=== PATIENT | male | born 1970 | race American Indian/Alaskan Native ===

== ENCOUNTER 2019-07-07 22:56 | Emergency (ER) | payer MEDICAID, OTHER ==
--- NOTE | 2019-07-07 23:40 | EDM.PDOC ---
ED HPI GENERAL MEDICAL PROBLEM - General Chief Complaint: Respiratory Problem Stated Complaint: HARD TIME BREATHING Time Seen by Provider: 07/07/19 23:25 Source of Information: Reports: Patient History Limitations: Reports: No Limitations - History of Present Illness INITIAL COMMENTS - FREE TEXT/NARRATIVE: This 48 yo male patient reports to the ED with increased shortness of breath and chest discomfort over the past 7-10 days. The patient states his symptoms have gotten worse over the past 2 days. The patient has not been seen in the clinic for his current symptoms. The patient reports his shortness of breath gets worse at night. The patient also reports he has noticed swelling in his legs over the past 2 days. The patient reports he is currently not on any medications. The patient reports he is an alcoholic, but has not drank in "years ". Onset Date: 06/30/19 Duration: Constant, Getting Worse Location: Reports: Chest Quality: Reports: Other Severity: Moderate Improves with: Reports: None Worsens with: Reports: None Context: Reports: Other Associated Symptoms: Reports: Chest Pain, cough w sputum, Shortness of Breath - Related Data Allergies Allergy/AdvReac Type Severity Reaction Status Date / Time No Known Allergies Allergy Verified 07/07/19 23:38 Home Meds: Home Meds . [No Known Home Meds] 07/07/19 [History] ED ROS GENERAL - Review of Systems Review Of Systems: Comprehensive ROS is negative, except as noted in HPI. ED EXAM, GENERAL - Physical Exam Exam: See Below Exam Limited By: No Limitations General Appearance: Alert, WD/WN, Moderate Distress Eye Exam: Bilateral Eye: EOMI, Normal Inspection, PERRL Ears: Normal External Exam, Normal Canal, Hearing Grossly Normal, Normal TMs Nose: Normal Inspection, Normal Mucosa, No Blood Throat/Mouth: Normal Inspection, Normal Lips, Normal Teeth, Normal Gums, Normal Oropharynx, Normal Voice, No Airway Compromise Head: Atraumatic, Normocephalic Neck: Normal Inspection, Supple, Non-Tender, Full Range of Motion Respiratory/Chest: No Accessory Muscle Use, Chest Non-Tender, Rhonchi ( bilateral lower lobes) Cardiovascular: Normal Peripheral Pulses, Regular Rate, Rhythm, No Gallop, No JVD, No Murmur, No Rub GI/Abdominal: Normal Bowel Sounds, Soft, Non-Tender, No Organomegaly, No Distention, No Abnormal Bruit, No Mass (Male) Exam: Deferred Rectal (Males) Exam: Deferred Extremities: Normal Range of Motion, Non-Tender, Normal Capillary Refill, Pedal Edema (2+) Neurological: Alert, Oriented, CN II-XII Intact, Normal Cognition, Normal Gait, Normal Reflexes Psychiatric: Normal Affect, Normal Mood Skin Exam: Warm, Dry, Intact, Normal Color, No Rash Lymphatic: No Adenopathy Course - Vital Signs Last Recorded V/S: Last Vital Signs Temp 35.7 C 07/07/19 23:00 Pulse 109 H 07/07/19 23:00 Resp 20 07/07/19 23:00 BP 116/88 07/07/19 23:00 Pulse Ox 100 07/07/19 23:00 - Orders/Labs/Meds Orders: Active Orders 24 hr Category Date Time Status EKG Documentation Completion [RC] URGENT Care 07/07/19 23:06 Ordered Chest w Cont [CT] Urgent Exams 07/08/19 00:25 Ordered Sodium Chloride 0.9% [Normal Saline] 1,000 ml Med 07/08/19 01:11 Active IV .BOLUS Medication Orders Sodium Chloride (Normal Saline) 1,000 mls @ 999 mls/hr IV .BOLUS ONE Stop: 07/08/19 02:11 Last Admin: 07/08/19 01:14 Dose: 999 mls/hr Labs: Laboratory Tests 07/07/19 07/07/19 07/07/19 Range/Units 23:20 23:20 23:20 WBC 9.5 (5.0-10.0) 10^3/uL RBC 4.52 L (4.6-6.2) 10^6/uL Hgb 13.5 L (14.0-18.0) g/dL Hct 41.3 (40.0-54.0) % MCV 91.4 (80-100) fL MCH 29.9 (27.0-34.0) pg MCHC 32.7 L (33.0-35.0) g/dL Plt Count 389 (150-450) 10^3/uL Neut % (Auto) 67.4 (42.2-75.2) % Lymph % (Auto) 21.6 (20.5-50.1) % [place] % (Auto) 8.3 H (2-8) % Eos % (Auto) 2.4 (1.0-3.0) % Baso % (Auto) 0.3 (0.0-1.0) % D-Dimer, Quantitative 2350 H (0-400) ng/mL Sodium 134 L (135-145) mmol/L Potassium 3.4 L (3.6-5.0) mmol/L Chloride 101 (101-111) mmol/L Carbon Dioxide 24.0 (21.0-31.0) mmol/L Anion Gap 12.4 BUN 22 H (7-18) mg/dL Creatinine 1.2 (0.6-1.3) mg/dL Est Cr Clr Drug Dosing 75.28 mL/min Estimated GFR (MDRD) > 60 BUN/Creatinine Ratio 18.33 Glucose 102 (74-105) mg/dL Calcium 8.3 L (8.4-10.2) mg/dl Total Bilirubin 0.9 (0.2-1.0) mg/dL AST 85 H (10-42) IU/L ALT 132 H (10-60) IU/L Alkaline Phosphatase 105 (42-121) IU/L Ammonia (11-35) umol/L Troponin I 0.03 H* (0.00-0.02) ng/ml Total Protein 6.9 (6.7-8.2) g/dl Albumin 3.6 (3.2-5.5) g/dl Globulin 3.3 Albumin/Globulin Ratio 1.09 /01/16 Range/Units 23:55 WBC (5.0-10.0) 10^3/uL RBC (4.6-6.2) 10^6/uL Hgb (14.0-18.0) g/dL Hct (40.0-54.0) % MCV (80-100) fL MCH (27.0-34.0) pg MCHC (33.0-35.0) g/dL Plt Count (150-450) 10^3/uL Neut % (Auto) (42.2-75.2) % Lymph % (Auto) (20.5-50.1) % [place] % (Auto) (2-8) % Eos % (Auto) (1.0-3.0) % Baso % (Auto) (0.0-1.0) % D-Dimer, Quantitative (0-400) ng/mL Sodium (135-145) mmol/L Potassium (3.6-5.0) mmol/L Chloride (101-111) mmol/L Carbon Dioxide (21.0-31.0) mmol/L Anion Gap BUN (7-18) mg/dL Creatinine (0.6-1.3) mg/dL Est Cr Clr Drug Dosing mL/min Estimated GFR (MDRD) BUN/Creatinine Ratio Glucose (74-105) mg/dL Calcium (8.4-10.2) mg/dl Total Bilirubin (0.2-1.0) mg/dL AST (10-42) IU/L ALT (10-60) IU/L Alkaline Phosphatase (42-121) IU/L Ammonia 42 H (11-35) umol/L Troponin I (0.00-0.02) ng/ml Total Protein (6.7-8.2) g/dl Albumin (3.2-5.5) g/dl Globulin Albumin/Globulin Ratio Meds: Medications Generic Name Dose Route Start Last Admin Trade Name Freq PRN Reason Stop Dose Admin Sodium Chloride 1,000 mls @ 999 mls/hr 07/08/19 01:11 07/08/19 01:14 Normal Saline IV 07/08/19 02:11 999 mls/hr .BOLUS ONE Administration Discontinued Medications Generic Name Dose Route Start Last Admin Trade Name Freq PRN Reason Stop Dose Admin Iopamidol 100 ml 07/08/19 00:25 07/08/19 00:41 Isovue-370 (76%) IVPUSH 07/08/19 00:26 100 ml ONETIME ONE Administration Departure - Departure Time of Disposition: 01:40 Disposition: DC/Tfer to Acute Hospital 02 Condition: Poor Clinical Impression: Bilateral pleural effusion - Discharge Information *PRESCRIPTION DRUG MONITORING PROGRAM REVIEWED*: Not Applicable *COPY OF PRESCRIPTION DRUG MONITORING REPORT IN PATIENT [place]: Not Applicable Forms: Interfacility Transfer EMTALA Care Plan Goals: Discussed the patient's history, examination, lab, EKG, x-ray and CT results with Dr. Fay. Dr. Fay accepted the patient for continued evaluation and further management as an inpatient at [facility] in [place]. Sepsis Event Note - Focused Exam Vital Signs: Vital Signs Temp Pulse Resp BP Pulse Ox 07/07/19 23:00 35.7 C 109 H 20 116/88 100 Date Exam was Performed: 07/08/19 Time Exam was Performed: 01:40 - My Orders Last 24 Hours: My Active Orders 07/07/19 23:06 EKG Documentation Completion [RC] URGENT 07/08/19 00:25 Chest w Cont [CT] Urgent 07/08/19 01:11 Sodium Chloride 0.9% [Normal Saline] 1,000 ml IV .BOLUS - Assessment/Plan Last 24 Hours: My Active Orders 07/07/19 23:06 EKG Documentation Completion [RC] URGENT 07/08/19 00:25 Chest w Cont [CT] Urgent 07/08/19 01:11 Sodium Chloride 0.9% [Normal Saline] 1,000 ml IV .BOLUS
[2019-07-07 23:48] LABS: ANION GAP 12.4; CHLORIDE,CL 101 mmol/L (101-111); SODIUM,NA 134 mmol/L (135-145)
[2019-07-08] MEDS ORDERED: Iopamidol 755 Mg/ML 100 ML Bottle IVPUSH ONE (00:25)
[2019-07-08] MEDS ORDERED: Sodium Chloride 0.9% 1,000 ML IV ONE (01:11)
== END 2019-07-08 02:15 ==
LOC: DL.ED 22:56
DX: J90 Pleural effusion, not elsewhere classified (principal)
CPT/HCPCS: 36415; 71046; 71260; 80053; 82140; 84484; 85025; 85379; 87804; 93005; 96360; 99285; J7030; Q9967; 99284

== ENCOUNTER 2020-08-03 16:52 | Emergency (ER) | payer OTHER ==
[2020-08-03] MEDS ORDERED: Potassium Chloride 10 MEQ Tab.ER PO ONE (16:53)
[2020-08-03] MEDS ORDERED: Furosemide 40 MG Tab PO ONE (16:53)
[2020-08-03] MEDS ORDERED: Sodium Chloride 0.9% 10 ML Syringe FLUSH PRN (17:22)
[2020-08-03] MEDS ORDERED: Furosemide 100 MG/10 ML SDV IVPUSH ONE (17:25)
[2020-08-03 18:01] LABS: PTT,PARTIAL THROMBOPLSTIN TIME 24.4 SEC (22.0-34.0)
[2020-08-03 18:05] LABS: ANION GAP 14.7 mEq/L (7-13)
[2020-08-03] MEDS ORDERED: Iopamidol 755 Mg/ML 100 ML Bottle IVPUSH ONE (18:09)
--- NOTE | 2020-08-03 18:11 | CR ---
PROCEDURE INFORMATION: Exam: XR Chest Exam date and time: 08/03/2020 5:57 PM Age: 50 years old Clinical indication: Other: Smoker, meth user; Additional info: Short of breath, edema, HX of chf TECHNIQUE: Imaging protocol: XR of the chest Views: 2 views. COMPARISON: CR Chest 2V 07/07/2019 11:43 PM FINDINGS: Lungs: There is mild nonspecific prominence of the pulmonary vasculature. There is no interstitial disease. There are scattered linear densities in both lungs which are likely fibrotic or atelectatic. Pleural spaces: Question small bilateral pleural effusions. Heart/Mediastinum: Mild cardiomegaly. Bones/joints: No acute bony findings are identified. Soft tissues: There is no soft tissue abnormality seen. IMPRESSION: Findings suggest an element of pulmonary venous hypertension. There is no overt sign of pulmonary edema. Volume overload cannot be excluded.
--- NOTE | 2020-08-03 18:38 | EDM.PDOC ---
Scribed by Sowmya Smith 08/03/20 1814 for Felice Noriega MD <Felice Noriega - Last Filed: 08/03/20 18:35> ED HPI GENERAL MEDICAL PROBLEM - General Chief Complaint: Cardiovascular Problem Stated Complaint: CONGESTIVE HEART FAILURE, STARTING TO SWELL Time Seen by Provider: 08/03/20 17:08 Source of Information: Reports: Patient, RN, RN Notes Reviewed History Limitations: Reports: No Limitations - History of Present Illness INITIAL COMMENTS - FREE TEXT/NARRATIVE: Patient presents to ED with reports of CHF exacerbation that started 1-2 days ago. Patient states 2 days ago he developed a cough, non productive. Patient states 1 day ago he noticed swelling in bilateral lower extremities and in neck. He denies SOB, difficulty swallowing, or chest pain. Patient states he was diagnosed with CHF approx 1 year ago. He does not take medications for it and has not followed up with his PCP at this time, stating "I don't want to go to the clinic because of COVID". Patient states he felt like he had COVID at the beginning of the month, self-quarantined, but never tested. Patient admits to meth use 3 days ago, stating "I thought it would help with my cough." Onset: Gradual Duration: Constant Location: Reports: Chest Quality: Reports: Ache Severity: Moderate Improves with: Reports: None Worsens with: Reports: None Associated Symptoms: Reports: No Other Symptoms - Related Data Allergies Allergy/AdvReac Type Severity Reaction Status Date / Time hydrocodone Allergy Hives Verified 08/03/20 17:29 morphine Allergy Hives Verified 08/03/20 17:29 Home Meds: Home Meds . [No Known Home Meds] 07/07/19 [History] Past Medical History Cardiovascular History: Reports: Afib, Cardiomyopathy, Heart Failure, Hypertension, SOB on Exertion Neurological History: Reports: CVA Psychiatric History: Reports: Addiction (meth) Oncologic (Cancer) History: Reports: Colon Other Oncologic History: patient states had colon cancer as child and had it cut out. - Past Surgical History GI Surgical History: Reports: Other (See Below) Other GI Surgeries/Procedures: bowel surgery for cancer as child Social & Family History - Family History Family Medical History: No Pertinent Family History - Tobacco Use Tobacco Use Status *Q: Current Every Day Tobacco User Tobacco Use Within Last Twelve Months: Cigarettes - Caffeine Use Caffeine Use: Reports: Coffee, Energy Drinks, Soda - Alcohol Use Alcohol Use History: No - Recreational Drug Use Recreational Drug Use: Yes Drug Use in Last 12 Months: Yes Recreational Drug Type: Reports: Methamphetamine Recreational Drug Use Frequency: Weekly Recreational Drug Route: Reports: Inhaled - Living Situation & Occupation Living situation: Reports: , with Family Occupation: Unemployed ED ROS GENERAL - Review of Systems Review Of Systems: Comprehensive ROS is negative, except as noted in HPI. ED EXAM, GENERAL - Physical Exam Exam: See Below Exam Limited By: No Limitations General Appearance: Alert, No Apparent Distress, Anxious Eye Exam: Bilateral Eye: Normal Inspection Nose: Normal Inspection Throat/Mouth: Normal Lips, Normal Voice, No Airway Compromise. No: Perioral Cyanosis Head: Atraumatic, Normocephalic Neck: Non-Tender, Full Range of Motion. No: Carotid Bruit Respiratory/Chest: No Respiratory Distress, No Accessory Muscle Use, Chest Non- Tender, Decreased Breath Sounds, Rales Cardiovascular: Regular Rate, Rhythm, JVD, Tachycardia, Systolic Murmur (Faint 1/6 JENNY), Other (+2 pitting edema to B/L knees) GI/Abdominal: Normal Bowel Sounds, Soft, Non-Tender, Hepatomegaly. No: Guarding, Rigid, Rebound Back Exam: Normal Inspection Extremities: Normal Range of Motion, Non-Tender, Pedal Edema. No: Calderon's Sign, Increased Warmth, Mottled, Pallor, Redness Neurological: Alert, Oriented, No Motor/Sensory Deficits Psychiatric: Anxious Skin Exam: Warm, Dry, Intact, Normal Color, No Rash #1 Interpretation EKG Date: 08/03/20 Time: 17:32 Rhythm: Other (sinus tachycardia) Rate (Beats/Min): 111 [place]: LAD-Left [place] Deviation (LVH) P-Wave: Present (probable left atrial enlargement.) QRS: Other (LVH.) ST-T: Elevated (ST elevation i nV2 and V3 stable and unchanged from 07/07/19.) QT: Prolonged (borderline prolonged QT interval.) Comparison: No Change (from 07/07/19.) Course - Radiology Interpretation Free Text/Narrative:: [facility] [place] [facility] Final Radiology Report Call: [phone] assistance Online chat: [email or web address] Name: DENNIS HARVEY Age: 50Years M Date: 08/03/2020 SSN: -- : [id number] Study: CR CHEST 2V Requesting Physician: FELICE NORIEGA Images: 2 Addl Studies: Provided Clinical History: short of breath, edema, Hx of CHF Contrast: Contrast Medium: Contrast Amount: Contrast Method: CONFIDENTIALITY STATEMENT This report is intended only for use by the referring physician, and only in accordance with law. If you received this in error, call [phone]. Page 1 of 1 PROCEDURE INFORMATION: Exam: XR Chest Exam date and time: 08/03/2020 5:57 PM Age: 50 years old Clinical indication: Other: Smoker, meth user; Additional info: Short of breath, edema, HX of chf TECHNIQUE: Imaging protocol: XR of the chest Views: 2 views. COMPARISON: CR Chest 2V 07/07/2019 11:43 PM FINDINGS: Lungs: There is mild nonspecific prominence of the pulmonary vasculature. There is no interstitial disease. There are scattered linear densities in both lungs which are likely fibrotic or atelectatic. Pleural spaces: Question small bilateral pleural effusions. Heart/Mediastinum: Mild cardiomegaly. Bones/joints: No acute bony findings are identified. Soft tissues: There is no soft tissue abnormality seen. IMPRESSION: Findings suggest an element of pulmonary venous hypertension. There is no overt sign of pulmonary edema. Volume overload cannot be excluded. Thank you for allowing us to participate in the care of your patient. Dictated and Authenticated by: Noel Mehta MD 08/03/2020 6:10 PM Central Time ([place] & [place]) - Re-Assessments/Exams Free Text/Narrative Re-Assessment/Exam: 08/03/20 19:00 Care of pt transferred to Virginie ESPINAL at shift change. Departure - Departure Disposition: Home, Self-Care 01 Clinical Impression: Acute on chronic diastolic CHF (congestive heart failure), Low left ventricular ejection fraction, Elevated liver enzymes, Methamphetamine abuse CKD (chronic kidney disease) Qualifiers: Chronic kidney disease stage: unspecified stage Qualified Code(s): N18.9 - Chronic kidney disease, unspecified Instructions: Shortness of Breath, Adult, [id number], Heart Failure, Diagnosis, [id number], Methamphetamines Use Disorder Forms: ED Department Discharge Additional Instructions: Decrease or stop meth use Follow up in clinic tomorrow urgent follow up if shortness of breath chest pain , increased swelling lasix 40mg in morning #1 and potassium 20mEq in am #1 <Virginie Bray - Last Filed: 08/03/20 22:05> Course - Vital Signs Last Recorded V/S: Last Vital Signs Temp 98.5 F 08/03/20 17:11 Pulse 115 H 08/03/20 17:11 Resp 22 H 08/03/20 17:11 BP 142/104 H 08/03/20 17:11 Pulse Ox 100 08/03/20 17:11 - Orders/Labs/Meds Orders: Active Orders 24 hr Category Date Time Status EKG 12 Lead [EKG Documentation Completion] [RC] STAT Care 08/03/20 17:23 Active Peripheral IV Care [RC] . DIRECTED Care 08/03/20 17:24 Active Sodium Chloride 0.9% [Saline Flush] Med 08/03/20 17:22 Active 10 ml FLUSH ASDIRECTED PRN Peripheral IV Insertion Adult [OM.PC] Stat Oth 08/03/20 17:24 Ordered Medication Orders Sodium Chloride (Saline Flush) 10 ml FLUSH ASDIRECTED PRN PRN Reason: Keep Vein Open Last Admin: 08/03/20 17:48 Dose: 10 ml Documented by: FELIX Labs: Laboratory Tests 08/03/20 08/03/20 08/03/20 Range/Units 17:37 17:37 17:37 WBC 6.3 (5.0-10.0) 10^3/uL RBC 4.17 L (4.6-6.2) 10^6/uL Hgb 12.1 L (14.0-18.0) g/dL Hct 37.1 L (40.0-54.0) % MCV 89.0 (80-100) fL MCH 29.0 (27.0-34.0) pg MCHC 32.6 L (33.0-35.0) g/dL Plt Count 327 (150-450) 10^3/uL Neut % (Auto) 66.4 (42.2-75.2) % Lymph % (Auto) 21.4 (20.5-50.1) % [place] % (Auto) 9.8 H (2-8) % Eos % (Auto) 1.9 (1.0-3.0) % Baso % (Auto) 0.5 (0.0-1.0) % PT 12.1 H (9.0-12.0) SEC INR 1.3 H (0.9-1.2) APTT 24.4 (22.0-34.0) SEC D-Dimer, Quantitative 1750 H (0-400) ng/mL Sodium 142 (136-145) mmol/L Potassium 3.7 (3.5-5.1) mmol/L Chloride 103 (98-107) mmol/L Carbon Dioxide 28 (21-32) mmol/L Anion Gap 14.7 H (7-13) mEq/L BUN 20 H (7-18) mg/dL Creatinine 1.41 H (0.70-1.30) mg/dL Est Cr Clr Drug Dosing 62.68 mL/min Estimated GFR (MDRD) 53 BUN/Creatinine Ratio 14.2 (No establ ref range) Glucose 125 H (74-99) mg/dL Calcium 8.1 L (8.5-10.1) mg/dL Total Bilirubin 0.8 (0.2-1.0) mg/dL AST 49 H (15-37) U/L ALT 100 H (16-63) U/L Alkaline Phosphatase 118 H (46-116) U/L Troponin I 0.051 (0.000-0.056) ng/mL B-Natriuretic Peptide 1060 H (0-100) pg/ml Total Protein 6.8 (6.4-8.2) g/dL Albumin 3.3 L (3.4-5.0) g/dL Globulin 3.5 Albumin/Globulin Ratio 0.94 Urine Color (YELLOW) Urine Appearance (CLEAR) Urine pH (5.0-9.0) Ur Specific [place] (1.005-1.030) Urine Protein (NEGATIVE) Urine Glucose (UA) (NEGATIVE) Urine Ketones (NEGATIVE) Urine Occult Blood (NEGATIVE) Urine Nitrite (NEGATIVE) Urine Bilirubin (NEGATIVE) Urine Urobilinogen (0.2-1.0) mg/dL Ur Leukocyte Esterase (NEGATIVE) Urine Opiates Screen (NEGATIVE) Ur Oxycodone Screen (NEGATIVE) Urine Methadone Screen (NEGATIVE) Ur Barbiturates Screen (NEGATIVE) U Tricyclic Antidepress (NEGATIVE) Ur Phencyclidine Scrn (NEGATIVE) Ur Amphetamine Screen (NEGATIVE) U Methamphetamines Scrn (NEGATIVE) Urine MDMA Screen (NEGATIVE) U Benzodiazepines Scrn (NEGATIVE) Urine Cocaine Screen (NEGATIVE) U Marijuana (THC) Screen (NEGATIVE) SARS-CoV-2 RNA (TRISHA) (NEGATIVE) 08/03/20 08/03/20 08/03/20 Range/Units 19:05 19:05 19:25 WBC (5.0-10.0) 10^3/uL RBC (4.6-6.2) 10^6/uL Hgb (14.0-18.0) g/dL Hct (40.0-54.0) % MCV (80-100) fL MCH (27.0-34.0) pg MCHC (33.0-35.0) g/dL Plt Count (150-450) 10^3/uL Neut % (Auto) (42.2-75.2) % Lymph % (Auto) (20.5-50.1) % [place] % (Auto) (2-8) % Eos % (Auto) (1.0-3.0) % Baso % (Auto) (0.0-1.0) % PT (9.0-12.0) SEC INR (0.9-1.2) APTT (22.0-34.0) SEC D-Dimer, Quantitative (0-400) ng/mL Sodium (136-145) mmol/L Potassium (3.5-5.1) mmol/L Chloride (98-107) mmol/L Carbon Dioxide (21-32) mmol/L Anion Gap (7-13) mEq/L BUN (7-18) mg/dL Creatinine (0.70-1.30) mg/dL Est Cr Clr Drug Dosing mL/min Estimated GFR (MDRD) BUN/Creatinine Ratio (No establ ref range) Glucose (74-99) mg/dL Calcium (8.5-10.1) mg/dL Total Bilirubin (0.2-1.0) mg/dL AST (15-37) U/L ALT (16-63) U/L Alkaline Phosphatase (46-116) U/L Troponin I (0.000-0.056) ng/mL B-Natriuretic Peptide (0-100) pg/ml Total Protein (6.4-8.2) g/dL Albumin (3.4-5.0) g/dL Globulin Albumin/Globulin Ratio Urine Color Yellow (YELLOW) Urine Appearance Clear (CLEAR) Urine pH 7.0 (5.0-9.0) Ur Specific [place] 1.020 (1.005-1.030) Urine Protein Negative (NEGATIVE) Urine Glucose (UA) Negative (NEGATIVE) Urine Ketones Negative (NEGATIVE) Urine Occult Blood Negative (NEGATIVE) Urine Nitrite Negative (NEGATIVE) Urine Bilirubin Negative (NEGATIVE) Urine Urobilinogen 0.2 (0.2-1.0) mg/dL Ur Leukocyte Esterase Negative (NEGATIVE) Urine Opiates Screen Negative (NEGATIVE) Ur Oxycodone Screen Negative (NEGATIVE) Urine Methadone Screen Negative (NEGATIVE) Ur Barbiturates Screen Negative (NEGATIVE) U Tricyclic Antidepress Negative (NEGATIVE) Ur Phencyclidine Scrn Negative (NEGATIVE) Ur Amphetamine Screen Negative (NEGATIVE) U Methamphetamines Scrn Positive H (NEGATIVE) Urine MDMA Screen Negative (NEGATIVE) U Benzodiazepines Scrn Negative (NEGATIVE) Urine Cocaine Screen Negative (NEGATIVE) U Marijuana (THC) Screen Negative (NEGATIVE) SARS-CoV-2 RNA (TRISHA) Negative (NEGATIVE) Meds: Medications Generic Name Dose Route Start Last Admin Trade Name Freq PRN Reason Stop Dose Admin Sodium Chloride 10 ml 08/03/20 17:22 08/03/20 17:48 Saline Flush FLUSH 10 ml ASDIRECTED PRN Administration Keep Vein Open Discontinued Medications Generic Name Dose Route Start Last Admin Trade Name Freq PRN Reason Stop Dose Admin Furosemide 80 mg 08/03/20 17:25 08/03/20 17:48 Lasix IVPUSH 08/03/20 17:26 80 mg NOW ONE Administration Iopamidol 100 ml 08/03/20 18:09 08/03/20 18:41 Isovue-370 (76%) IVPUSH 08/03/20 18:10 100 ml ONETIME ONE Administration - Re-Assessments/Exams Free Text/Narrative Re-Assessment/Exam: 08/03/20 21:52 verbalizes feeling improved. Refuses option of admission to hospital. States will follow up at [facility] for medication management. Departure - Departure Time of Disposition: 21:54 Condition: Fair Sepsis Event Note (ED) - Focused Exam Vital Signs: Vital Signs Temp Pulse Resp BP Pulse Ox 08/03/20 17:11 98.5 F 115 H 22 H 142/104 H 100 I have read and agree with the documentation that has been completed regarding this visit. By signing this record, I attest that the documentation was completed in my physical presence and is an accurate record of the encounter.
--- NOTE | 2020-08-03 19:27 | CT ---
PROCEDURE INFORMATION: Exam: CT Chest With Contrast; Diagnostic Exam date and time: 08/03/2020 7:05 PM Age: 50 years old Clinical indication: Other: Pe protocol; Additional info: Short of breath, d-dimer >1700 TECHNIQUE: Imaging protocol: Diagnostic computed tomography of the chest with contrast. Radiation optimization: All CT scans at this facility use at least one of these dose optimization techniques: automated exposure control; mA and/or kV adjustment per patient size (includes targeted exams where dose is matched to clinical indication); or iterative reconstruction. Contrast material: [id number]; Contrast volume: 75 ml; Contrast route: INTRAVENOUS (IV); COMPARISON: CR Chest 2V 08/03/2020 5:57 PM FINDINGS: Lungs: Mild non-specific patchy linear density at both bases. These changes could be inflammatory or could reflect atelectasis. There are scattered linear densities in both lungs which are likely fibrotic or atelectatic. Pleural spaces: There are moderate bilateral pleural effusions. Right slightly greater than left. Heart: Moderate cardiomegaly. There is mild atherosclerotic calcification of the coronary arteries most obvious in the left main coronary artery. Pulmonary arteries: Pulmonary arterial visualization is limited due to respiratory motion and suboptimal opacification. The pulmonary vascular tree can be accurately assessed out until approximately the 4th order branches. Peripheral emboli beyond this point cannot be ruled in or ruled out. There are no central pulmonary arterial filling defects. Aorta: There is no thoracic aortic aneurysm. Lymph nodes: There is no evidence of lymphadenopathy. Bones/joints: No acute bony findings are identified. Soft tissues: There is no soft tissue abnormality seen. IMPRESSION: 1. Limited pulmonary arterial visualization as described. 2. There is no CT evidence of central pulmonary embolism. Peripheral emboli cannot be ruled in or ruled out. 3. Findings suggest an element of pulmonary venous hypertension. There is no overt sign of pulmonary edema. Volume overload cannot be excluded. 4. Mild non-specific patchy linear density at both bases. These changes could be inflammatory or could reflect atelectasis.
[2020-08-03] MEDS ORDERED: Furosemide 40 MG Tab ONE (22:07)
[2020-08-03] MEDS ORDERED: Potassium Chloride 10 MEQ Tab.ER ONE (22:08)
== END 2020-08-03 22:14 | disposition home or self-care (01) ==
LOC: DL.ED 16:52
DX: I13.0 Hypertensive heart and chronic kidney disease with heart failure and stage 1 through stage 4 chronic kidney disease, or unspecified chronic kidney disease (principal); N18.9 Chronic kidney disease, unspecified; I50.33 Acute on chronic diastolic (congestive) heart failure; R74.8 Abnormal levels of other serum enzymes; F15.10 Other stimulant abuse, uncomplicated; I45.81 Long QT syndrome; I48.91 Unspecified atrial fibrillation; Z72.0 Tobacco use; Z88.5 Allergy status to narcotic agent; Z20.822 Contact with and (suspected) exposure to COVID-19
CPT/HCPCS: 36415; 71046; 71260; 80053; 80305; 81003; 83880; 84484; 85025; 85379; 85610; 85730; 87635; 93005; 96374; 99284; A9270; J1940; Q9967; 93010; U0002

== ENCOUNTER 2021-03-03 15:03 | Emergency (ER) | payer OTHER ==
[2021-03-03] MEDS ORDERED: Amoxicillin/Clavulanate K 875-125 MG Tab PO ONE (15:30)
--- NOTE | 2021-03-03 16:10 | CR ---
PROCEDURE INFORMATION: Exam: XR Left Wrist Exam date and time: 03/03/2021 3:42 PM Age: 50 years old Clinical indication: Injury or trauma; Other: Dog bite left wrist TECHNIQUE: Imaging protocol: XR Left wrist. Views: 3 or more views. COMPARISON: No relevant prior studies available. FINDINGS: Bones/joints: No acute fracture. Suggestion of subchondral cyst in lunate Soft tissues: . Moderate dorsal soft tissue swelling IMPRESSION: No acute osseous process.
[2021-03-03] MEDS ORDERED: Bacitracin Oint 1 GM U/D Packet TOP ONE (16:30)
--- NOTE | 2021-03-03 16:30 | EDM.PDOC ---
ED HPI GENERAL MEDICAL PROBLEM - General Chief Complaint: General Stated Complaint: MED CLERANCE, DOG BITE LEFT HAND Time Seen by Provider: 03/03/21 15:25 Source of Information: Reports: Patient, Police, RN, RN Notes Reviewed History Limitations: Reports: No Limitations - History of Present Illness INITIAL COMMENTS - FREE TEXT/NARRATIVE: Pt brought to ER in [facility] police custody with request for evaluation of dog bite to pt's left wrist. Pt states he was bit by his own dog. The dog was healthy and fully vaccinated. Admits to mild scratch to his right knee from the dog. Denies any other injury. Pt states his Tetanus vaccine was updated 2 years ago. Onset: Today, Sudden Duration: Constant Location: Reports: Upper Extremity, Left, Lower Extremity, Right Quality: Reports: Ache Severity: Mild Improves with: Reports: None Worsens with: Reports: None Associated Symptoms: Reports: No Other Symptoms - Related Data Allergies Allergy/AdvReac Type Severity Reaction Status Date / Time hydrocodone Allergy Hives Verified 03/03/21 15:22 morphine Allergy Hives Verified 03/03/21 15:22 Home Meds: Home Meds . [No Known Home Meds] 07/07/19 [History] Past Medical History HEENT History: Reports: Sinusitis Other HEENT History: diplopia Cardiovascular History: Reports: Heart Failure, Hypertension Other Cardiovascular History: EF 10-15% 2019 Respiratory History: Reports: None Genitourinary History: Reports: None Neurological History: Reports: Other (See Below) Other Neuro History: Midbrain Ischemic Infarct 2019 Psychiatric History: Reports: None Endocrine/Metabolic History: Reports: None Hematologic History: Reports: None Immunologic History: Reports: None Oncologic (Cancer) History: Reports: Colon Other Oncologic History: patient states had colon cancer as child and had it cut out. Dermatologic History: Reports: None - Infectious Disease History Infectious Disease History: Reports: None - Past Surgical History Head Surgeries/Procedures: Reports: None GI Surgical History: Reports: Other (See Below) Other GI Surgeries/Procedures: bowel surgery for cancer as child Musculoskeletal Surgical History: Reports: Other (See Below) Other Musculoskeletal Surgeries/Procedures:: HX back surgery Social & Family History - Family History Family Medical History: No Pertinent Family History - Tobacco Use Tobacco Use Status *Q: Light Tobacco User Years of Tobacco use: 16 Packs/Tins Daily: 0.1 - Caffeine Use Caffeine Use: Reports: Coffee, Soda - Recreational Drug Use Recreational Drug Use: Yes Recreational Drug Type: Reports: Marijuana/Hashish Recreational Drug Use Frequency: Daily - Living Situation & Occupation Living situation: Reports: Other (In police custody as of 03/03/21.) ED ROS GENERAL - Review of Systems Review Of Systems: Comprehensive ROS is negative, except as noted in HPI. ED EXAM, GENERAL - Physical Exam Exam: See Below Exam Limited By: No Limitations General Appearance: Alert, WD/WN, No Apparent Distress Eye Exam: Bilateral Eye: Normal Inspection Ears: Normal External Exam Nose: Normal Inspection Throat/Mouth: Normal Inspection Head: Atraumatic, Normocephalic Neck: Normal Inspection, Non-Tender, Full Range of Motion Respiratory/Chest: No Respiratory Distress, Lungs Clear Cardiovascular: Normal Peripheral Pulses GI/Abdominal: Other (Atraumatic) (Male) Exam: Deferred Rectal (Males) Exam: Deferred Back Exam: Normal Inspection (Atraumatic) Extremities: Normal Range of Motion, No Pedal Edema, Normal Capillary Refill, Other (Left wrist with mild soft tissue swelling and bruising and a 1cm puncture/lac. at dorsal wrist and 0.25cm puncture to ventral left wrist, no FB, no active bleeding.) Neurological: Alert, Oriented, No Motor/Sensory Deficits Psychiatric: Normal Mood Skin Exam: Warm, Dry Course - Vital Signs Last Recorded V/S: Last Vital Signs Temp 98 F 03/03/21 15:23 Pulse 98 03/03/21 15:23 Resp 18 03/03/21 15:23 BP 142/94 H 03/03/21 15:23 Pulse Ox 97 03/03/21 15:23 - Orders/Labs/Meds Meds: Medications Discontinued Medications Generic Name Dose Route Start Last Admin Trade Name Freq PRN Reason Stop Dose Admin Amoxicillin/Clavulanate Potassium 1 tab 03/03/21 15:30 03/03/21 15:47 Amoxicillin/Clavulanate K 875-125 Mg Tab PO 03/03/21 15:31 1 tab ONETIME ONE Administration Bacitracin 1 dose 03/03/21 16:30 03/03/21 16:36 Bacitracin Oint 1 Gm U/D Packet TOP 03/03/21 16:31 1 dose ONETIME ONE Administration - Radiology Interpretation Free Text/Narrative:: [facility] Final Radiology Report 24/7/365 Call: [phone] assistance Online chat: [email or web address] Name: DENNIS HARVEY Age: 50Years M Date: 03/03/2021 SSN: -- : 1970 Study: CR WRIST COMP MIN 3V LT Requesting Physician: FELICE CAUSEY Images: 3 Addl Studies: Provided Clinical History: dog bite left wrist Contrast: Contrast Medium: Contrast Amount: Contrast Method: CONFIDENTIALITY STATEMENT This report is intended only for use by the referring physician, and only in accordance with law. If you received this in error, call [phone]. Page 1 of 1 PROCEDURE INFORMATION: Exam: XR Left Wrist Exam date and time: 03/03/2021 3:42 PM Age: 50 years old Clinical indication: Injury or trauma; Other: Dog bite left wrist TECHNIQUE: Imaging protocol: XR Left wrist. Views: 3 or more views. COMPARISON: No relevant prior studies available. FINDINGS: Bones/joints: No acute fracture. Suggestion of subchondral cyst in lunate Soft tissues: . Moderate dorsal soft tissue swelling IMPRESSION: No acute osseous process. Thank you for allowing us to participate in the care of your patient. Dictated and Authenticated by: Micha Pedro MD 03/03/2021 4:09 PM Central Time ([place] & [place]) - Re-Assessments/Exams Free Text/Narrative Re-Assessment/Exam: 03/03/21 No procedural wound care by physician. Wounds cleansed and dressed by RN. Departure - Departure Time of Disposition: 16:36 Disposition: DC/Tfer to Court of Law En 21 Condition: Good Clinical Impression: Dog bite of left wrist Qualifiers: Encounter type: initial encounter Qualified Code(s): S61.552A - Open bite of left wrist, initial encounter - Discharge Information *PRESCRIPTION DRUG MONITORING PROGRAM REVIEWED*: No *COPY OF PRESCRIPTION DRUG MONITORING REPORT IN PATIENT LEXA: No Instructions: Animal Bite, Adult, [id number] Forms: ED Department Discharge Additional Instructions: Rx: Augmentin 875mg: One tablet by mouth twice a day for 10 days, starting 03/03/21. No medical contraindication to being in [facility] at this time. Sepsis Event Note (ED) - Focused Exam Vital Signs: Vital Signs Temp Pulse Resp BP Pulse Ox 03/03/21 15:23 98 F 98 18 142/94 H 97
== END 2021-03-03 16:41 ==
LOC: DL.ED 15:03
DX: S61.552A Open bite of left wrist, initial encounter (principal); I11.0 Hypertensive heart disease with heart failure; I50.9 Heart failure, unspecified; Z88.5 Allergy status to narcotic agent; Z72.0 Tobacco use; W54.0XXA Bitten by dog, initial encounter
CPT/HCPCS: 73110; 99283; A9270

== ENCOUNTER 2021-03-22 12:04 | Emergency (ER) | payer SELFPAY | END 2021-03-22 13:32 | disposition left against medical advice (07) | LOC: DL.ED 12:04 | DX: Z53.21 Procedure and treatment not carried out due to patient leaving prior to being seen by health care provider (principal) ==

== ENCOUNTER 2021-10-04 01:39 | Emergency (ER) | payer MEDICAID, OTHER ==
[2021-10-04] MEDS ORDERED: Iopamidol 612 MG/ML 100 ML Bottle IVPUSH ONE (01:54)
[2021-10-04 02:31] LABS: ANION GAP 14.5 mEq/L (7-13); CHLORIDE,CL 101 mmol/L (98-107); SODIUM,NA 138 mmol/L (136-145)
[2021-10-04] MEDS ORDERED: Ketorolac 30 MG/ML SDV IVPUSH ONE (04:57)
== END 2021-10-04 05:05 ==
LOC: DL.ED 01:39
DX: S02.2XXA Fracture of nasal bones, initial encounter for closed fracture (principal); S00.83XA Contusion of other part of head, initial encounter; S50.11XA Contusion of right forearm, initial encounter; S80.01XA Contusion of right knee, initial encounter; I11.0 Hypertensive heart disease with heart failure; I50.9 Heart failure, unspecified; Z88.5 Allergy status to narcotic agent; Z79.82 Long term (current) use of aspirin; Z79.899 Other long term (current) drug therapy; W01.198A Fall on same level from slipping, tripping and stumbling with subsequent striking against other object, initial encounter
CPT/HCPCS: 36415; 70450; 70486; 71260; 72125; 73562; 74177; 80053; 81003; 84484; 85025; 85610; 93005; 96374; 99285; J1885; Q9967

== ENCOUNTER 2023-05-04 10:26 | Emergency (ER) | payer MEDICAID ==
[2023-05-04] MEDS ORDERED: Sodium Chloride 0.9% 10 ML Syringe FLUSH PRN (10:40)
[2023-05-04 10:53] LABS: BASOPHILS PERCENT AUTO 0.3 % (0.0-1.0); EOSINOPHILS PERCENT AUTO 1.5 % (1.0-3.0); HEMATOCRIT 38.8 % (40.0-54.0); HEMOGLOBIN 12.6 g/dL (14.0-18.0); LYMPHOCYTES PERCENT AUTO 10.8 % (20.5-50.1); MEAN CORPUSCULAR HEMOGLOBIN 29.4 pg (27.0-34.0); MEAN CORPUSCULAR HGB CONC 32.5 g/dL (33.0-35.0); MEAN CORPUSCULAR VOLUME 90.7 fL (80-100); MONOCYTES PERCENT AUTO 6.9 % (2-8); NEUTROPHILS PERCENT AUTO 80.5 % (42.2-75.2); PLATELET COUNT,PLT 297 10^3/uL (150-450); RED BLOOD CELL COUNT 4.28 10^6/uL (4.6-6.2); WHITE BLOOD CELL COUNT,WBC 8.9 10^3/uL (5.0-10.0)
[2023-05-04 11:10] LABS: BARBITURATES,URINE NEGATIVE (NEGATIVE); BENZODIAZEPINE,URINE NEGATIVE (NEGATIVE); MDMA (ECSTASY), URINE NEGATIVE (NEGATIVE); METHADONE,URINE NEGATIVE (NEGATIVE); METHAMPHETAMINES,URINE POSITIVE (NEGATIVE); OPIATES,URINE NEGATIVE (NEGATIVE); TCA,URINE NEGATIVE (NEGATIVE)
[2023-05-04 11:11] LABS: AMPHETAMINES,URINE NEGATIVE (NEGATIVE); OXYCODONE,URINE NEGATIVE (NEGATIVE); PHENCYCLIDINE,URINE NEGATIVE (NEGATIVE)
[2023-05-04 11:14] LABS: ALANINE AMINOTRANSFERASE,ALT 44 U/L (16-63); ALBUMIN 3.5 g/dL (3.4-5.0); ALKALINE PHOSPHATASE 133 U/L (46-116); ANION GAP 14.3 mEq/L (7-13); ASPARTATE AMNIOTRANSFERASE,AST 25 U/L (15-37); BILIRUBIN TOTAL 0.7 mg/dL (0.2-1.0); BLOOD UREA NITROGEN,BUN 20 mg/dL (7-18); BUN/CREATININE RATIO 13.2 (No establ ref range); CALCIUM 8.3 mg/dL (8.5-10.1); CARBON DIOXIDE,CO2 24 mmol/L (21-32); CHLORIDE,CL 104 mmol/L (98-107); CREATININE 1.51 mg/dL (0.70-1.30); GLUCOSE RANDOM 93 mg/dL (70-99); POTASSIUM,K 3.3 mmol/L (3.5-5.1); PROTEIN TOTAL,TP 7.1 g/dL (6.4-8.2); SODIUM,NA 139 mmol/L (136-145)
[2023-05-04 11:17] LABS: ESTIMATED GFR 55 mL/min (>=60)
[2023-05-04 11:29] LABS: CORONAVIRUS COVID-19 NAA NEGATIVE (NEGATIVE); INFLUENZA A NAA NEGATIVE (NEGATIVE); INFLUENZA B NAA NEGATIVE (NEGATIVE)
[2023-05-04] MEDS ORDERED: Sodium Chloride 0.9% 1,000 ML IV ONE (11:31)
[2023-05-04] MEDS ORDERED: Potassium Chloride 10 MEQ Tab.ER PO ONE (11:31)
== END 2023-05-04 12:39 | disposition home or self-care (01) ==
LOC: DL.ED 10:26
DX: E86.0 Dehydration (principal); E87.6 Hypokalemia; F15.10 Other stimulant abuse, uncomplicated; Z20.822 Contact with and (suspected) exposure to COVID-19; I11.0 Hypertensive heart disease with heart failure; I50.9 Heart failure, unspecified; Z79.82 Long term (current) use of aspirin; Z79.899 Other long term (current) drug therapy; Z88.5 Allergy status to narcotic agent
CPT/HCPCS: 0240U; 36415; 80053; 80305-QW; 84484; 85025; 93005; 93010; 96360; 99284; 99284-25; A9270-GY; J3490; J7030

== ENCOUNTER 2023-08-19 20:30 | Inpatient (IN) | payer MEDICAID ==
[2023-08-19] MEDS: Sodium Chloride 0.9% 10 ML Syringe FLUSH PRN (21:56)
[2023-08-19 22:01] LABS: BASOPHILS PERCENT AUTO 0.8 % (0.0-1.0); EOSINOPHILS PERCENT AUTO 2.3 % (1.0-3.0); HEMATOCRIT 35.8 % (40.0-54.0); HEMOGLOBIN 11.7 g/dL (14.0-18.0); LYMPHOCYTES PERCENT AUTO 12.5 % (20.5-50.1); MEAN CORPUSCULAR HEMOGLOBIN 25.7 pg (27.0-34.0); MEAN CORPUSCULAR HGB CONC 32.7 g/dL (33.0-35.0); MEAN CORPUSCULAR VOLUME 78.7 fL (80-100); MONOCYTES PERCENT AUTO 10.2 % (2-8); NEUTROPHILS PERCENT AUTO 74.2 % (42.2-75.2); PLATELET COUNT,PLT 308 10^3/uL (150-450); RED BLOOD CELL COUNT 4.55 10^6/uL (4.6-6.2); WHITE BLOOD CELL COUNT,WBC 7.4 10^3/uL (5.0-10.0)
[2023-08-19 22:20] LABS: B-TYPE NATRIURETIC PEPTIDE,BNP 1230 pg/ml (0-100)
[2023-08-19 22:28] LABS: A/G RATIO 1.3; ALANINE AMINOTRANSFERASE,ALT 41 U/L (16-63); ALBUMIN 3.9 g/dL (3.4-5.0); ALKALINE PHOSPHATASE 167 U/L (46-116); ANION GAP 18.1 mEq/L (7-13); ASPARTATE AMNIOTRANSFERASE,AST 47 U/L (15-37); BLOOD UREA NITROGEN,BUN 27 mg/dL (7-18); BUN/CREATININE RATIO 16.8 (No establ ref range); CALCIUM 8.7 mg/dL (8.5-10.1); CARBON DIOXIDE,CO2 24 mmol/L (21-32); CHLORIDE,CL 97 mmol/L (98-107); CREATININE 1.61 mg/dL (0.70-1.30); MAGNESIUM 2.1 mg/dL (1.8-2.4); POTASSIUM,K 4.1 mmol/L (3.5-5.1); PROTEIN TOTAL,TP 6.9 g/dL (6.4-8.2); SODIUM,NA 135 mmol/L (136-145)
[2023-08-19 22:29] LABS: ESTIMATED GFR 51 mL/min (>=60); ETHANOL BLOOD MEDICAL < 3 mg/dL (0)
[2023-08-19] MEDS: Bumetanide 1 MG/4 ML MDV IVPUSH ONE (22:51)
[2023-08-20 00:10] LABS: GLUCOSE RANDOM 98 mg/dL (70-99)
[2023-08-20 00:32] LABS: APPEARANCE,URINE CLEAR (CLEAR); BILIRUBIN,URINE NEGATIVE (NEGATIVE); COLOR,URINE YELLOW (YELLOW); GLUCOSE,URINE NEGATIVE (NEGATIVE); KETONES,URINE NEGATIVE (NEGATIVE); LEUKOCYTE ESTERASE,URINE NEGATIVE (NEGATIVE); NITRITE,URINE NEGATIVE (NEGATIVE); OCCULT BLOOD,URINE NEGATIVE (NEGATIVE); PROTEIN,URINE 30 (NEGATIVE)
[2023-08-20 00:33] LABS: AMPHETAMINES,URINE NEGATIVE (NEGATIVE); BARBITURATES,URINE NEGATIVE (NEGATIVE); BENZODIAZEPINE,URINE NEGATIVE (NEGATIVE); MDMA (ECSTASY), URINE NEGATIVE (NEGATIVE); METHADONE,URINE NEGATIVE (NEGATIVE); METHAMPHETAMINES,URINE NEGATIVE (NEGATIVE); OPIATES,URINE NEGATIVE (NEGATIVE); OXYCODONE,URINE NEGATIVE (NEGATIVE); PHENCYCLIDINE,URINE NEGATIVE (NEGATIVE); TCA,URINE NEGATIVE (NEGATIVE)
[2023-08-20] MEDS ORDERED: Magnesium Hydroxide 400 MG/5 ML Susp 30 ML Cup PO PRN (00:52)
[2023-08-20] MEDS ORDERED: Sennosides/Docusate Sodium 50-8.6 MG Tab PO PRN (00:52)
[2023-08-20] MEDS ORDERED: Ondansetron 4 MG/2 ML SDV IVPUSH PRN (00:52)
[2023-08-20] MEDS ORDERED: Albuterol/Ipratropium 3.0-0.5 MG/3 ML Neb Soln NEB PRN (00:52)
[2023-08-20] MEDS ORDERED: Polyethylene Glycol 3350 Powder 17 GM Packet PO PRN (00:52)
[2023-08-20] MEDS ORDERED: Acetaminophen 325 MG Tab PO PRN (00:52)
[2023-08-20] MEDS ORDERED: Temazepam 15 MG Cap PO PRN (00:52)
[2023-08-20] MEDS ORDERED: fentaNYL 100 MCG/2 ML SDV IVPUSH PRN (00:56)
[2023-08-20] MEDS ORDERED: Naloxone 2 MG/2 ML Syringe IVPUSH PRN (00:56)
[2023-08-20 00:57] LABS: BACTERIA,URINE RARE /HPF (0-FEW/HPF); EPITHELIAL CELLS,URINE RARE /HPF (NOT SEEN); MUCUS,URINE FEW /LPF (NOT SEEN); RBC,URINE NOT SEEN /HPF (0-5)
[2023-08-20 00:58] LABS: WBC,URINE 0-5 /HPF (0-5/HPF)
[2023-08-20] MEDS: Bumetanide 1 MG/4 ML MDV IVPUSH ONE ×2 (03:15→09:35)
[2023-08-20 06:25] LABS: EOSINOPHILS PERCENT AUTO 3.1 % (1.0-3.0); HEMATOCRIT 33.6 % (40.0-54.0); LYMPHOCYTES PERCENT AUTO 15.4 % (20.5-50.1); MEAN CORPUSCULAR HEMOGLOBIN 25.8 pg (27.0-34.0); MEAN CORPUSCULAR HGB CONC 32.7 g/dL (33.0-35.0); MEAN CORPUSCULAR VOLUME 78.7 fL (80-100); MONOCYTES PERCENT AUTO 10.9 % (2-8); NEUTROPHILS PERCENT AUTO 69.6 % (42.2-75.2); PLATELET COUNT,PLT 270 10^3/uL (150-450); RED BLOOD CELL COUNT 4.27 10^6/uL (4.6-6.2); WHITE BLOOD CELL COUNT,WBC 6.2 10^3/uL (5.0-10.0)
[2023-08-20 06:54] LABS: A/G RATIO 1.4; ALBUMIN 3.7 g/dL (3.4-5.0); ANION GAP 16.5 mEq/L (7-13); BILIRUBIN TOTAL 3.1 mg/dL (0.2-1.0); BUN/CREATININE RATIO 16.1 (No establ ref range); CALCIUM 8.5 mg/dL (8.5-10.1); CREATININE 1.49 mg/dL (0.70-1.30); EST CRCL DRUG DOSING (CG) 57.34 mL/min; MAGNESIUM 1.9 mg/dL (1.8-2.4); POTASSIUM,K 3.5 mmol/L (3.5-5.1); PROTEIN TOTAL,TP 6.4 g/dL (6.4-8.2)
[2023-08-20] MEDS ORDERED: Potassium Chloride 10 MEQ Tab.ER PO SCH (08:00)
[2023-08-20] MEDS ORDERED: Losartan 25 MG Tab PO SCH (09:00)
[2023-08-20] MEDS ORDERED: Non-Formulary Medication 1 Each (Tiotropium [Spiriva Handihaler] 18 MCG Cap) PO SCH (09:00)
[2023-08-20] MEDS ORDERED: Aspirin 81 MG Tab.EC PO SCH (09:00)
[2023-08-20] MEDS ORDERED: Non-Formulary Medication 1 Each (Fluticasone Propion/Salmeterol [Fluticasone-Salmeterol 10 PO SCH (09:00)
[2023-08-20] MEDS ORDERED: Pantoprazole 40 MG Tab.CR PO SCH (09:00)
[2023-08-20] MEDS ORDERED: Oxymetazoline 0.05% Nasal Spray 30 ML Bottle NAS PRN (13:06)
[2023-08-20] MEDS: Metoprolol Tartrate 5 MG/5 ML SDV IVPUSH PRN (13:47)
[2023-08-20] MEDS ORDERED: Metoprolol Succinate 25 MG Tab.ER PO SCH (21:00)
[2023-08-21] MEDS ORDERED: Aspirin 81 MG Tab.EC PO SCH (09:00)
== END 2023-08-20 14:10 | disposition home or self-care (01) | DRG 291 ==
LOC: DL.ED 20:30 → DL.MS 08-20 00:45
PROVIDERS: ADMIT Internal Medicine; ATTEND Internal Medicine
DX: I13.0 Hypertensive heart and chronic kidney disease with heart failure and stage 1 through stage 4 chronic kidney disease, or unspecified chronic kidney disease (principal); I50.43 Acute on chronic combined systolic (congestive) and diastolic (congestive) heart failure; E87.1 Hypo-osmolality and hyponatremia; J98.11 Atelectasis; R17 Unspecified jaundice; J90 Pleural effusion, not elsewhere classified; E78.00 Pure hypercholesterolemia, unspecified; I25.2 Old myocardial infarction; R18.8 Other ascites; F17.210 Nicotine dependence, cigarettes, uncomplicated; I42.6 Alcoholic cardiomyopathy; E78.5 Hyperlipidemia, unspecified; J44.9 Chronic obstructive pulmonary disease, unspecified; N18.32 Chronic kidney disease, stage 3b; I27.20 Pulmonary hypertension, unspecified; Z88.8 Allergy status to other drugs, medicaments and biological substances; E87.8 Other disorders of electrolyte and fluid balance, not elsewhere classified; R53.1 Weakness; D63.1 Anemia in chronic kidney disease; K59.09 Other constipation; F15.10 Other stimulant abuse, uncomplicated; I95.9 Hypotension, unspecified; M25.475 Effusion, left foot; F41.9 Anxiety disorder, unspecified; F32.A Depression, unspecified; G89.29 Other chronic pain; M54.9 Dorsalgia, unspecified; I07.1 Rheumatic tricuspid insufficiency; Z88.5 Allergy status to narcotic agent; Z88.1 Allergy status to other antibiotic agents; Z79.82 Long term (current) use of aspirin; Z79.899 Other long term (current) drug therapy; Z85.038 Personal history of other malignant neoplasm of large intestine; Z86.73 Personal history of transient ischemic attack (TIA), and cerebral infarction without residual deficits
CPT/HCPCS: 36415; 71046; 80053; 80305-QW; 80307; 81001; 83735; 83880; 84484; 85025; 96374; 99285; 99285-25; J3490

== ENCOUNTER 2023-08-31 14:10 | Emergency (ER) | payer MEDICAID | END 2023-08-31 16:19 | disposition home or self-care (01) | LOC: DL.ED 14:10 | DX: J90 Pleural effusion, not elsewhere classified (principal); J44.9 Chronic obstructive pulmonary disease, unspecified; I13.0 Hypertensive heart and chronic kidney disease with heart failure and stage 1 through stage 4 chronic kidney disease, or unspecified chronic kidney disease; I50.9 Heart failure, unspecified; N18.9 Chronic kidney disease, unspecified; E78.00 Pure hypercholesterolemia, unspecified; I25.2 Old myocardial infarction; Z86.73 Personal history of transient ischemic attack (TIA), and cerebral infarction without residual deficits; Z79.82 Long term (current) use of aspirin; Z79.899 Other long term (current) drug therapy; Z88.5 Allergy status to narcotic agent; Z88.1 Allergy status to other antibiotic agents; Z88.8 Allergy status to other drugs, medicaments and biological substances | CPT/HCPCS: 71046; 99283; 99284 ==

== ENCOUNTER 2023-09-24 21:42 | Emergency (ER) | payer MEDICAID ==
[2023-09-24] MEDS: Sodium Chloride 0.9% 10 ML Syringe FLUSH PRN (22:32)
[2023-09-24 22:38] LABS: BASOPHILS PERCENT AUTO 0.6 % (0.0-1.0); EOSINOPHILS PERCENT AUTO 2.1 % (1.0-3.0); HEMATOCRIT 38.4 % (40.0-54.0); HEMOGLOBIN 12.4 g/dL (14.0-18.0); LYMPHOCYTES PERCENT AUTO 13.9 % (20.5-50.1); MEAN CORPUSCULAR HEMOGLOBIN 25.4 pg (27.0-34.0); MEAN CORPUSCULAR HGB CONC 32.3 g/dL (33.0-35.0); MEAN CORPUSCULAR VOLUME 78.5 fL (80-100); MONOCYTES PERCENT AUTO 9.4 % (2-8); PLATELET COUNT,PLT 262 10^3/uL (150-450); RED BLOOD CELL COUNT 4.89 10^6/uL (4.6-6.2)
[2023-09-24] MEDS: Furosemide 40 MG/4 ML VIAL IVPUSH ONE (22:46)
[2023-09-24 23:00] LABS: ALBUMIN 3.6 g/dL (3.4-5.0); ANION GAP 17.7 mEq/L (7-13); BILIRUBIN TOTAL 3.9 mg/dL (0.2-1.0); BUN/CREATININE RATIO 12.2 (No establ ref range); CALCIUM 8.5 mg/dL (8.5-10.1); CREATININE 1.39 mg/dL (0.70-1.30); EST CRCL DRUG DOSING (CG) 61.46 mL/min; POTASSIUM,K 3.7 mmol/L (3.5-5.1); PROTEIN TOTAL,TP 7.2 g/dL (6.4-8.2)
[2023-09-25] MEDS: Furosemide 40 MG/4 ML VIAL IVPUSH ONE (01:00)
== END 2023-09-25 02:10 | disposition home or self-care (01) ==
LOC: DL.ED 21:42
DX: I13.0 Hypertensive heart and chronic kidney disease with heart failure and stage 1 through stage 4 chronic kidney disease, or unspecified chronic kidney disease (principal); I50.9 Heart failure, unspecified; N18.9 Chronic kidney disease, unspecified; R60.0 Localized edema; E78.00 Pure hypercholesterolemia, unspecified; I25.2 Old myocardial infarction; J44.9 Chronic obstructive pulmonary disease, unspecified; Z86.73 Personal history of transient ischemic attack (TIA), and cerebral infarction without residual deficits; Z88.5 Allergy status to narcotic agent; Z88.8 Allergy status to other drugs, medicaments and biological substances; Z79.51 Long term (current) use of inhaled steroids; Z79.899 Other long term (current) drug therapy
CPT/HCPCS: 36415; 71045; 80053; 83880; 84484; 85025; 93005; 93010; 96374; 96376; 99284; 99284-25; J1940; J3490

== ENCOUNTER 2023-10-24 20:52 | Inpatient (IN) | payer MEDICAID ==
[2023-10-24 21:14] LABS: BASOPHILS PERCENT AUTO 0.3 % (0.0-1.0); EOSINOPHILS PERCENT AUTO 0.2 % (1.0-3.0); HEMATOCRIT 32.7 % (40.0-54.0); HEMOGLOBIN 10.6 g/dL (14.0-18.0); LYMPHOCYTES PERCENT AUTO 9.5 % (20.5-50.1); MEAN CORPUSCULAR HEMOGLOBIN 25.9 pg (27.0-34.0); MEAN CORPUSCULAR HGB CONC 32.4 g/dL (33.0-35.0); MONOCYTES PERCENT AUTO 14.4 % (2-8); NEUTROPHILS PERCENT AUTO 75.6 % (42.2-75.2); PLATELET COUNT,PLT 227 10^3/uL (150-450); RED BLOOD CELL COUNT 4.09 10^6/uL (4.6-6.2); WHITE BLOOD CELL COUNT,WBC 6.6 10^3/uL (5.0-10.0)
[2023-10-24] MEDS: Sodium Chloride 0.9% 10 ML Syringe FLUSH PRN (21:15)
[2023-10-24 21:35] LABS: INR 1.3 (0.9-1.2); PROTHROMBIN TIME 12.8 SEC (9.0-12.0); PTT,PARTIAL THROMBOPLSTIN TIME 25.3 SEC (22.0-34.0)
[2023-10-24 21:40] LABS: ALANINE AMINOTRANSFERASE,ALT 19 U/L (16-63); ALBUMIN 3.5 g/dL (3.4-5.0); ALKALINE PHOSPHATASE 151 U/L (46-116); AMYLASE 86 U/L (25-115); ANION GAP 16.7 mEq/L (7-13); ASPARTATE AMNIOTRANSFERASE,AST 24 U/L (15-37); BILIRUBIN TOTAL 2.5 mg/dL (0.2-1.0); BLOOD UREA NITROGEN,BUN 20 mg/dL (7-18); BUN/CREATININE RATIO 14.7 (No establ ref range); C-REACTIVE PROTEIN 1.32 ng/dL (<=0.50); CALCIUM 7.9 mg/dL (8.5-10.1); CARBON DIOXIDE,CO2 21 mmol/L (21-32); CHLORIDE,CL 98 mmol/L (98-107); CREATININE 1.36 mg/dL (0.70-1.30); EST CRCL DRUG DOSING (CG) 58.73 mL/min; GLUCOSE RANDOM 93 mg/dL (70-99); LIPASE 101 U/L (16-77); POTASSIUM,K 3.7 mmol/L (3.5-5.1); PROTEIN TOTAL,TP 7.1 g/dL (6.4-8.2); SODIUM,NA 132 mmol/L (136-145)
[2023-10-24 21:41] LABS: LACTIC ACID 1.7 mmol/L (0.4-2.0)
[2023-10-24 21:43] LABS: B-TYPE NATRIURETIC PEPTIDE,BNP 1780 pg/ml (0-100); ESTIMATED GFR 62 mL/min (>=60); ETHANOL BLOOD MEDICAL < 3 mg/dL (0)
[2023-10-24 22:00] LABS: CORONAVIRUS COVID-19 NAA NEGATIVE (NEGATIVE); INFLUENZA A NAA NEGATIVE (NEGATIVE); INFLUENZA B NAA NEGATIVE (NEGATIVE); RESPIRATORY SYNCYTIAL VIR NAA NEGATIVE (NEGATIVE)
[2023-10-24] MEDS: Potassium Chloride 10 MEQ Tab.ER PO ONE (22:13)
[2023-10-24] MEDS: Furosemide 40 MG/4 ML VIAL IV ONE (22:13)
[2023-10-24] MEDS: Albuterol/Ipratropium 3.0-0.5 MG/3 ML Neb Soln NEB ONE (22:14)
[2023-10-24 22:34] LABS: APPEARANCE,URINE CLEAR (CLEAR); BILIRUBIN,URINE NEGATIVE (NEGATIVE); COLOR,URINE YELLOW (YELLOW); GLUCOSE,URINE NEGATIVE (NEGATIVE); KETONES,URINE NEGATIVE (NEGATIVE); LEUKOCYTE ESTERASE,URINE NEGATIVE (NEGATIVE); NITRITE,URINE NEGATIVE (NEGATIVE); OCCULT BLOOD,URINE NEGATIVE (NEGATIVE); PH,URINE 5.5 (5.0-9.0); PROTEIN,URINE NEGATIVE (NEGATIVE); UROBILINOGEN,URINE 0.2 mg/dL (0.2-1.0)
[2023-10-24 22:37] LABS: AMPHETAMINES,URINE NEGATIVE (NEGATIVE); BARBITURATES,URINE NEGATIVE (NEGATIVE); BENZODIAZEPINE,URINE NEGATIVE (NEGATIVE); MDMA (ECSTASY), URINE NEGATIVE (NEGATIVE); METHADONE,URINE NEGATIVE (NEGATIVE); METHAMPHETAMINES,URINE NEGATIVE (NEGATIVE); OPIATES,URINE NEGATIVE (NEGATIVE); OXYCODONE,URINE NEGATIVE (NEGATIVE); PHENCYCLIDINE,URINE NEGATIVE (NEGATIVE); TCA,URINE NEGATIVE (NEGATIVE)
[2023-10-24] MEDS ORDERED: Polyethylene Glycol 3350 Powder 17 GM Packet PO PRN (23:27)
[2023-10-24] MEDS ORDERED: Magnesium Hydroxide 400 MG/5 ML Susp 30 ML Cup PO PRN (23:27)
[2023-10-24] MEDS ORDERED: Sennosides/Docusate Sodium 50-8.6 MG Tab PO PRN (23:27)
[2023-10-24] MEDS ORDERED: Albuterol/Ipratropium 3.0-0.5 MG/3 ML Neb Soln NEB PRN ×2 (23:27→23:53)
[2023-10-24] MEDS ORDERED: Naloxone 2 MG/2 ML Syringe IVPUSH PRN (23:31)
[2023-10-24] MEDS ORDERED: fentaNYL 100 MCG/2 ML SDV IVPUSH PRN (23:31)
[2023-10-24] MEDS ORDERED: hydrOXYzine HCl 25 MG Tab PO PRN (23:32)
[2023-10-24] MEDS ORDERED: Metoprolol Tartrate 5 MG/5 ML SDV IVPUSH PRN (23:34)
[2023-10-24] MEDS ORDERED: hydrALAZINE 20 MG/ML SDV IVPUSH PRN (23:34)
[2023-10-24] MEDS: Pantoprazole 40 MG Vial IVPUSH ONE (23:52)
[2023-10-25] MEDS: Calcium Gluconate 2 GM in Sodium Chloride 0.9% 100 ML IV ONE ×2 (00:30→00:31)
[2023-10-25] MEDS: Formoterol/Mometasone 100-5 MCG 8.8 GM Inhaler INH SCH (05:28)
[2023-10-25] MEDS: Tiotropium Bromide 4 GM Inhalation Spray (2.5mcg/1 dose; 10 doses) INH SCH (05:28)
[2023-10-25] MEDS: Midodrine 5 MG Tab PO SCH (05:31)
[2023-10-25 07:01] LABS: BASOPHILS PERCENT AUTO 0.4 % (0.0-1.0); EOSINOPHILS PERCENT AUTO 1.1 % (1.0-3.0); HEMOGLOBIN 10.7 g/dL (14.0-18.0); LYMPHOCYTES PERCENT AUTO 13.7 % (20.5-50.1); MEAN CORPUSCULAR HEMOGLOBIN 25.9 pg (27.0-34.0); MEAN CORPUSCULAR HGB CONC 32.4 g/dL (33.0-35.0); MEAN CORPUSCULAR VOLUME 79.9 fL (80-100); MONOCYTES PERCENT AUTO 17.6 % (2-8); NEUTROPHILS PERCENT AUTO 67.2 % (42.2-75.2); PLATELET COUNT,PLT 232 10^3/uL (150-450); RED BLOOD CELL COUNT 4.13 10^6/uL (4.6-6.2); WHITE BLOOD CELL COUNT,WBC 5.3 10^3/uL (5.0-10.0)
[2023-10-25 07:13] LABS: A/G RATIO 1.1; ALBUMIN 3.5 g/dL (3.4-5.0); ANION GAP 14.1 mEq/L (7-13); BILIRUBIN TOTAL 2.9 mg/dL (0.2-1.0); BUN/CREATININE RATIO 12.1 (No establ ref range); C-REACTIVE PROTEIN 1.42 ng/dL (<=0.50); CALCIUM 8.4 mg/dL (8.5-10.1); CREATININE 1.32 mg/dL (0.70-1.30); EST CRCL DRUG DOSING (CG) 60.51 mL/min; POTASSIUM,K 3.1 mmol/L (3.5-5.1); PROTEIN TOTAL,TP 6.7 g/dL (6.4-8.2)
[2023-10-25] MEDS: Potassium Chloride 10 MEQ Tab.ER PO SCH (08:18)
[2023-10-25] MEDS: guaiFENesin 600 MG Tab.ER PO SCH (08:18)
[2023-10-25] MEDS: Aspirin 81 MG Tab.EC PO SCH (08:18)
[2023-10-25] MEDS: Pantoprazole 40 MG Tab.CR PO SCH (08:19)
[2023-10-25] MEDS: predniSONE 20 MG Tab PO SCH (08:19)
[2023-10-25] MEDS: Fluticasone NASAL Spray 16 GM Bottle NASBOTH SCH (08:19)
[2023-10-25] MEDS: Losartan 25 MG Tab PO SCH (08:19)
[2023-10-25] MEDS: Bumetanide 1 MG/4 ML MDV IVPUSH ONE ×2 (10:42→18:32)
[2023-10-25] MEDS: Calcium Carbonate 500 MG Tab.Chew PO PRN (11:47)
[2023-10-25] MEDS: GI Cocktail Oral Solution 30 ML PO PRN (14:29)
[2023-10-25] MEDS: Metoprolol Succinate 25 MG Tab.ER PO SCH (20:24)
[2023-10-25] MEDS: Zolpidem 5 MG Tab PO PRN (20:24)
[2023-10-25] MEDS: Acetaminophen 325 MG Tab PO PRN (20:25)
[2023-10-26 06:37] LABS: BASOPHILS PERCENT AUTO 0.3 % (0.0-1.0); EOSINOPHILS PERCENT AUTO 0.1 % (1.0-3.0); HEMATOCRIT 35.4 % (40.0-54.0); HEMOGLOBIN 11.7 g/dL (14.0-18.0); MEAN CORPUSCULAR HEMOGLOBIN 26.2 pg (27.0-34.0); MEAN CORPUSCULAR HGB CONC 33.1 g/dL (33.0-35.0); MEAN CORPUSCULAR VOLUME 79.4 fL (80-100); MONOCYTES PERCENT AUTO 13.3 % (2-8); NEUTROPHILS PERCENT AUTO 67.3 % (42.2-75.2); PLATELET COUNT,PLT 250 10^3/uL (150-450); RED BLOOD CELL COUNT 4.46 10^6/uL (4.6-6.2); WHITE BLOOD CELL COUNT,WBC 6.8 10^3/uL (5.0-10.0)
[2023-10-26 07:02] LABS: ALBUMIN 3.4 g/dL (3.4-5.0); BILIRUBIN TOTAL 2.5 mg/dL (0.2-1.0); BUN/CREATININE RATIO 14.4 (No establ ref range); CALCIUM 8.9 mg/dL (8.5-10.1); CREATININE 1.39 mg/dL (0.70-1.30); EST CRCL DRUG DOSING (CG) 57.46 mL/min; MAGNESIUM 2.3 mg/dL (1.8-2.4); PROTEIN TOTAL,TP 6.8 g/dL (6.4-8.2)
[2023-10-26] MEDS: Ondansetron 4 MG/2 ML SDV IVPUSH PRN (09:12)
[2023-10-26] MEDS: Bumetanide 1 MG Tab PO SCH (09:44)
[2023-10-26] MEDS: Albumin Human 50 GM in Premix Bag 1 BAG IV ONE (12:16)
[2023-10-26] MEDS: HYDROmorphone 0.5 MG/0.5 ML Syringe IVPUSH STA (15:48)
[2023-10-26] MEDS: LORazepam 2 MG/ML SDV IVPUSH ONE (15:48)
[2023-10-26] MEDS: Potassium Chloride 10 MEQ Tab.ER PO SCH (19:26)
[2023-10-27] MEDS: guaiFENesin/Dextromethorphan 100-10 MG/5 ML Soln 5 ML Cup PO PRN (01:50)
[2023-10-27 06:48] LABS: BASOPHILS PERCENT AUTO 0.1 % (0.0-1.0); EOSINOPHILS PERCENT AUTO 0.1 % (1.0-3.0); HEMATOCRIT 35.5 % (40.0-54.0); HEMOGLOBIN 11.6 g/dL (14.0-18.0); LYMPHOCYTES PERCENT AUTO 18.1 % (20.5-50.1); MEAN CORPUSCULAR HEMOGLOBIN 25.8 pg (27.0-34.0); MEAN CORPUSCULAR HGB CONC 32.7 g/dL (33.0-35.0); MEAN CORPUSCULAR VOLUME 79.1 fL (80-100); MONOCYTES PERCENT AUTO 9.3 % (2-8); NEUTROPHILS PERCENT AUTO 72.4 % (42.2-75.2); PLATELET COUNT,PLT 270 10^3/uL (150-450); RED BLOOD CELL COUNT 4.49 10^6/uL (4.6-6.2); WHITE BLOOD CELL COUNT,WBC 7.1 10^3/uL (5.0-10.0)
[2023-10-27 07:12] LABS: A/G RATIO 1.2; ALBUMIN 3.7 g/dL (3.4-5.0); ANION GAP 17.8 mEq/L (7-13); BILIRUBIN TOTAL 2.5 mg/dL (0.2-1.0); BUN/CREATININE RATIO 15.5 (No establ ref range); CALCIUM 8.8 mg/dL (8.5-10.1); CREATININE 1.74 mg/dL (0.70-1.30); EST CRCL DRUG DOSING (CG) 45.9 mL/min; MAGNESIUM 2.4 mg/dL (1.8-2.4); POTASSIUM,K 4.8 mmol/L (3.5-5.1); PROTEIN TOTAL,TP 6.7 g/dL (6.4-8.2)
== END 2023-10-27 11:29 | disposition home or self-care (01) | DRG 291 ==
LOC: DL.ED 20:52 → DL.MS 22:27
PROVIDERS: ADMIT Internal Medicine; ATTEND Internal Medicine
DX: I13.0 Hypertensive heart and chronic kidney disease with heart failure and stage 1 through stage 4 chronic kidney disease, or unspecified chronic kidney disease (principal); I50.23 Acute on chronic systolic (congestive) heart failure; K72.00 Acute and subacute hepatic failure without coma; K85.20 Alcohol induced acute pancreatitis without necrosis or infection; J98.11 Atelectasis; E87.1 Hypo-osmolality and hyponatremia; R18.8 Other ascites; J44.1 Chronic obstructive pulmonary disease with (acute) exacerbation; I27.20 Pulmonary hypertension, unspecified; I42.8 Other cardiomyopathies; E78.5 Hyperlipidemia, unspecified; I07.1 Rheumatic tricuspid insufficiency; F10.10 Alcohol abuse, uncomplicated; K72.10 Chronic hepatic failure without coma; E83.51 Hypocalcemia; E78.00 Pure hypercholesterolemia, unspecified; K70.30 Alcoholic cirrhosis of liver without ascites; E87.6 Hypokalemia; D50.9 Iron deficiency anemia, unspecified; K59.09 Other constipation; N18.30 Chronic kidney disease, stage 3 unspecified; G89.29 Other chronic pain; F32.A Depression, unspecified; D63.1 Anemia in chronic kidney disease; M54.9 Dorsalgia, unspecified; F15.10 Other stimulant abuse, uncomplicated; F41.9 Anxiety disorder, unspecified; Z79.899 Other long term (current) drug therapy; Z86.73 Personal history of transient ischemic attack (TIA), and cerebral infarction without residual deficits; Z91.148 Patient's other noncompliance with medication regimen for other reason; Z85.038 Personal history of other malignant neoplasm of large intestine; Z79.82 Long term (current) use of aspirin; Z79.51 Long term (current) use of inhaled steroids; Z88.5 Allergy status to narcotic agent; Z88.8 Allergy status to other drugs, medicaments and biological substances; I25.2 Old myocardial infarction
CPT/HCPCS: 0241U; 36415; 71045; 74176; 80053; 80305-QW; 80307; 81003; 82150; 83605; 83690; 83735; 83880; 84145; 84484; 85025; 85610; 85730; 86140; 87040; 93005; 94640; 99223; 99232; 99233; 99238; A9270-GY; C9113; J0612; J1170; J1940; J2060; J2405; J3490; J7512; J7620-GY; P9047

== ENCOUNTER 2023-11-25 15:46 | Emergency (ER) | payer MEDICAID ==
[2023-11-25 15:56] LABS: BASOPHILS PERCENT AUTO 0.7 % (0.0-1.0); EOSINOPHILS PERCENT AUTO 3.2 % (1.0-3.0); HEMOGLOBIN 12.7 g/dL (14.0-18.0); LYMPHOCYTES PERCENT AUTO 20.5 % (20.5-50.1); MEAN CORPUSCULAR HGB CONC 32.6 g/dL (33.0-35.0); MEAN CORPUSCULAR VOLUME 82.8 fL (80-100); MONOCYTES PERCENT AUTO 12.4 % (2-8); NEUTROPHILS PERCENT AUTO 63.2 % (42.2-75.2); PLATELET COUNT,PLT 279 10^3/uL (150-450); RED BLOOD CELL COUNT 4.71 10^6/uL (4.6-6.2); WHITE BLOOD CELL COUNT,WBC 5.6 10^3/uL (5.0-10.0)
[2023-11-25 16:02] LABS: APPEARANCE,URINE CLEAR (CLEAR); BILIRUBIN,URINE NEGATIVE (NEGATIVE); COLOR,URINE YELLOW (YELLOW); GLUCOSE,URINE NEGATIVE (NEGATIVE); KETONES,URINE NEGATIVE (NEGATIVE); LEUKOCYTE ESTERASE,URINE NEGATIVE (NEGATIVE); NITRITE,URINE NEGATIVE (NEGATIVE); OCCULT BLOOD,URINE NEGATIVE (NEGATIVE); PROTEIN,URINE NEGATIVE (NEGATIVE); UROBILINOGEN,URINE 0.2 mg/dL (0.2-1.0)
[2023-11-25 16:05] LABS: ALANINE AMINOTRANSFERASE,ALT 51 U/L (16-63); ALBUMIN 3.9 g/dL (3.4-5.0); ALKALINE PHOSPHATASE 143 U/L (46-116); ANION GAP 11.1 mEq/L (7-13); ASPARTATE AMNIOTRANSFERASE,AST 42 U/L (15-37); BILIRUBIN TOTAL 1.1 mg/dL (0.2-1.0); BLOOD UREA NITROGEN,BUN 11 mg/dL (7-18); BUN/CREATININE RATIO 8.8 (No establ ref range); C-REACTIVE PROTEIN < 0.50 ng/dL (<=0.50); CARBON DIOXIDE,CO2 28 mmol/L (21-32); CHLORIDE,CL 102 mmol/L (98-107); CREATININE 1.25 mg/dL (0.70-1.30); EST CRCL DRUG DOSING (CG) 66.12 mL/min; ESTIMATED GFR 69 mL/min (>=60); GLUCOSE RANDOM 113 mg/dL (70-99); LIPASE 73 U/L (16-77); MAGNESIUM 2.3 mg/dL (1.8-2.4); POTASSIUM,K 4.1 mmol/L (3.5-5.1); PROTEIN TOTAL,TP 7.7 g/dL (6.4-8.2); SODIUM,NA 137 mmol/L (136-145)
[2023-11-25 16:08] LABS: AMPHETAMINES,URINE NEGATIVE (NEGATIVE); BARBITURATES,URINE NEGATIVE (NEGATIVE); BENZODIAZEPINE,URINE NEGATIVE (NEGATIVE); MDMA (ECSTASY), URINE NEGATIVE (NEGATIVE); METHADONE,URINE NEGATIVE (NEGATIVE); METHAMPHETAMINES,URINE NEGATIVE (NEGATIVE); OPIATES,URINE NEGATIVE (NEGATIVE); OXYCODONE,URINE POSITIVE (NEGATIVE); PHENCYCLIDINE,URINE NEGATIVE (NEGATIVE); TCA,URINE NEGATIVE (NEGATIVE)
[2023-11-25] MEDS: Dexamethasone 4 MG/ML SDV IVPUSH ONE (16:20)
== END 2023-11-25 16:30 | disposition home or self-care (01) ==
LOC: DL.ED 15:46
DX: M54.17 Radiculopathy, lumbosacral region (principal); G89.29 Other chronic pain; I13.0 Hypertensive heart and chronic kidney disease with heart failure and stage 1 through stage 4 chronic kidney disease, or unspecified chronic kidney disease; I50.9 Heart failure, unspecified; N18.9 Chronic kidney disease, unspecified; E78.00 Pure hypercholesterolemia, unspecified; I25.10 Atherosclerotic heart disease of native coronary artery without angina pectoris; Z79.82 Long term (current) use of aspirin; Z79.899 Other long term (current) drug therapy; Z91.040 Latex allergy status; Z88.5 Allergy status to narcotic agent; Z88.8 Allergy status to other drugs, medicaments and biological substances; Z88.1 Allergy status to other antibiotic agents
CPT/HCPCS: 36415; 80053; 80305; 81003; 83690; 83735; 85025; 86140; 96374; 99284; J1100

== ENCOUNTER 2024-06-09 09:34 | Emergency (ER) | payer MEDICAID ==
[2024-06-09 10:07] LABS: BASOPHILS PERCENT AUTO 0.5 % (0.0-1.0); EOSINOPHILS PERCENT AUTO 1.6 % (1.0-3.0); HEMATOCRIT 38.9 % (40.0-54.0); HEMOGLOBIN 12.8 g/dL (14.0-18.0); MEAN CORPUSCULAR HEMOGLOBIN 31.5 pg (27.0-34.0); MEAN CORPUSCULAR HGB CONC 32.9 g/dL (33.0-35.0); MEAN CORPUSCULAR VOLUME 95.8 fL (80-100); MONOCYTES PERCENT AUTO 11.2 % (2-8); NEUTROPHILS PERCENT AUTO 71.7 % (42.2-75.2); PLATELET COUNT,PLT 365 10^3/uL (150-450); RED BLOOD CELL COUNT 4.06 10^6/uL (4.6-6.2); WHITE BLOOD CELL COUNT,WBC 9.6 10^3/uL (5.0-10.0)
[2024-06-09] MEDS: Nitroglycerin 2% Oint 1 GM UD Packet TOP ONE (10:13)
[2024-06-09] MEDS: Sodium Chloride 0.9% 10 ML Syringe FLUSH PRN (10:14)
[2024-06-09 10:23] LABS: INR 1.4 (0.9-1.2); PROTHROMBIN TIME 14.2 SEC (9.0-12.0)
[2024-06-09 10:24] LABS: A/G RATIO 1.1; ANION GAP 20.2 mEq/L (7-13); BILIRUBIN TOTAL 2.2 mg/dL (0.2-1.0); BUN/CREATININE RATIO 12.1 (No establ ref range); CALCIUM 8.9 mg/dL (8.5-10.1); CREATININE 1.82 mg/dL (0.70-1.30); EST CRCL DRUG DOSING (CG) 43.89 mL/min; MAGNESIUM 2.2 mg/dL (1.8-2.4); POTASSIUM,K 4.2 mmol/L (3.5-5.1); PROTEIN TOTAL,TP 7.5 g/dL (6.4-8.2)
[2024-06-09] MEDS: Aspirin 81 MG Tab.Chew PO ONE (10:47)
[2024-06-09 11:37] LABS: METHAMPHETAMINES,URINE NEGATIVE (NEGATIVE)
[2024-06-09 11:38] LABS: AMPHETAMINES,URINE NEGATIVE (NEGATIVE); BARBITURATES,URINE NEGATIVE (NEGATIVE); BENZODIAZEPINE,URINE NEGATIVE (NEGATIVE); MDMA (ECSTASY), URINE NEGATIVE (NEGATIVE); METHADONE,URINE NEGATIVE (NEGATIVE); OPIATES,URINE NEGATIVE (NEGATIVE); OXYCODONE,URINE POSITIVE (NEGATIVE); PHENCYCLIDINE,URINE NEGATIVE (NEGATIVE); TCA,URINE NEGATIVE (NEGATIVE)
[2024-06-09] MEDS: Iopamidol 755 Mg/ML 100 ML Bottle IVPUSH ONE (12:18)
== END 2024-06-09 12:55 ==
LOC: DL.ED 09:34
DX: R07.9 Chest pain, unspecified (principal); I13.0 Hypertensive heart and chronic kidney disease with heart failure and stage 1 through stage 4 chronic kidney disease, or unspecified chronic kidney disease; I50.9 Heart failure, unspecified; N18.9 Chronic kidney disease, unspecified; I25.2 Old myocardial infarction; E78.00 Pure hypercholesterolemia, unspecified; J44.9 Chronic obstructive pulmonary disease, unspecified; F17.210 Nicotine dependence, cigarettes, uncomplicated; Z79.82 Long term (current) use of aspirin; Z79.899 Other long term (current) drug therapy; Z79.51 Long term (current) use of inhaled steroids; Z79.2 Long term (current) use of antibiotics; Z79.52 Long term (current) use of systemic steroids; Z88.5 Allergy status to narcotic agent; Z88.1 Allergy status to other antibiotic agents; Z91.040 Latex allergy status
CPT/HCPCS: 36415; 71045; 71275; 80053; 80305; 83690; 83735; 83880; 84484; 85025; 85379; 85610; 85730; 86140; 87040; 87428; 93005; 99285; A9270; Q9967

== ENCOUNTER 2024-09-16 19:55 | Emergency (ER) | payer MEDICAID, MEDICARE ==
[2024-09-16] MEDS ORDERED: Sodium Chloride 0.9% 10 ML Syringe FLUSH PRN (20:17)
[2024-09-16] MEDS: Aspirin 81 MG Tab.Chew PO ONE (20:33)
[2024-09-16 20:36] LABS: BASOPHILS PERCENT AUTO 0.1 % (0.0-1.0); EOSINOPHILS PERCENT AUTO 0.5 % (1.0-3.0); HEMOGLOBIN 13.6 g/dL (14.0-18.0); LYMPHOCYTES PERCENT AUTO 4.8 % (20.5-50.1); MEAN CORPUSCULAR HEMOGLOBIN 28.8 pg (27.0-34.0); MEAN CORPUSCULAR VOLUME 84.7 fL (80-100); MONOCYTES PERCENT AUTO 7.6 % (2-8); PLATELET COUNT,PLT 317 10^3/uL (150-450); RED BLOOD CELL COUNT 4.72 10^6/uL (4.6-6.2); WHITE BLOOD CELL COUNT,WBC 12.6 10^3/uL (5.0-10.0)
[2024-09-16 21:00] LABS: A/G RATIO 0.9; ALBUMIN 3.9 g/dL (3.4-5.0); BILIRUBIN TOTAL 0.9 mg/dL (0.2-1.0); BUN/CREATININE RATIO 15.1 (No establ ref range); CREATININE 1.99 mg/dL (0.70-1.30); EST CRCL DRUG DOSING (CG) 39.67 mL/min; LACTIC ACID 1.9 mmol/L (0.4-2.0); MAGNESIUM 2.3 mg/dL (1.8-2.4); POTASSIUM,K 2.7 mmol/L (3.5-5.1); PROTEIN TOTAL,TP 8.2 g/dL (6.4-8.2)
[2024-09-16 21:04] LABS: ANION GAP 18.7 mEq/L (7-13)
[2024-09-16] MEDS: Potassium Chloride 20 MEQ in Premix Bag 1 BAG IV ONE (22:40)
[2024-09-16] MEDS: Albuterol/Ipratropium 3.0-0.5 MG/3 ML Neb Soln NEB ONE (23:19)
[2024-09-17] MEDS: Potassium Chloride 10 MEQ Tab.ER PO ONE (03:11)
[2024-09-17 05:34] LABS: ANION GAP 12.5 mEq/L (7-13); CREATININE 1.61 mg/dL (0.70-1.30); EST CRCL DRUG DOSING (CG) 49.04 mL/min; POTASSIUM,K 3.5 mmol/L (3.5-5.1)
== END 2024-09-17 07:00 | disposition other institution (70) ==
LOC: DL.ED 19:55
DX: E87.6 Hypokalemia (principal); I13.0 Hypertensive heart and chronic kidney disease with heart failure and stage 1 through stage 4 chronic kidney disease, or unspecified chronic kidney disease; I50.9 Heart failure, unspecified; E78.00 Pure hypercholesterolemia, unspecified; J45.909 Unspecified asthma, uncomplicated; N18.9 Chronic kidney disease, unspecified; Z88.8 Allergy status to other drugs, medicaments and biological substances; Z88.5 Allergy status to narcotic agent; Z91.040 Latex allergy status; Z79.82 Long term (current) use of aspirin; Z79.899 Other long term (current) drug therapy; Z79.51 Long term (current) use of inhaled steroids; Z79.2 Long term (current) use of antibiotics
CPT/HCPCS: 36415; 71045; 80048; 80053; 83605; 83735; 83880; 84484; 85025; 85379; 93005; 93010; 94640; 96365; 96366; 99284; 99285; A9270; J3480; J7620

== ENCOUNTER 2024-11-02 06:48 | Emergency (ER) | payer MEDICARE, MEDICAID ==
[2024-11-02 08:13] LABS: HEMATOCRIT 48.8 % (40.0-54.0); MEAN CORPUSCULAR HEMOGLOBIN 29.7 pg (27.0-34.0); MEAN CORPUSCULAR HGB CONC 34.8 g/dL (33.0-35.0); MEAN CORPUSCULAR VOLUME 85.3 fL (80-100); PLATELET COUNT,PLT 429 10^3/uL (150-450); RED BLOOD CELL COUNT 5.72 10^6/uL (4.6-6.2); WHITE BLOOD CELL COUNT,WBC 6.7 10^3/uL (5.0-10.0)
[2024-11-02 08:15] LABS: BASOPHILS PERCENT AUTO 0.3 % (0.0-1.0); EOSINOPHILS PERCENT AUTO 13.4 % (1.0-3.0); LYMPHOCYTES PERCENT AUTO 16.4 % (20.5-50.1); MONOCYTES PERCENT AUTO 6.6 % (2-8); NEUTROPHILS PERCENT AUTO 63.3 % (42.2-75.2)
[2024-11-02 08:29] LABS: PROTHROMBIN TIME 10.7 SEC (9.0-12.0)
[2024-11-02 08:45] LABS: ALANINE AMINOTRANSFERASE,ALT 32 U/L (16-63); ALBUMIN 4.6 g/dL (3.4-5.0); ALKALINE PHOSPHATASE 149 U/L (46-116); ANION GAP 15.8 mEq/L (7-13); ASPARTATE AMNIOTRANSFERASE,AST 30 U/L (15-37); BILIRUBIN TOTAL 1.2 mg/dL (0.2-1.0); BLOOD UREA NITROGEN,BUN 47 mg/dL (7-18); BUN/CREATININE RATIO 22.4 (No establ ref range); CALCIUM 9.2 mg/dL (8.5-10.1); CARBON DIOXIDE,CO2 26 mmol/L (21-32); CHLORIDE,CL 97 mmol/L (98-107); EST CRCL DRUG DOSING (CG) 36.29 mL/min; ESTIMATED GFR 37 mL/min (>=60); ETHANOL BLOOD MEDICAL < 3 mg/dL (0); GLUCOSE RANDOM 101 mg/dL (70-99); MAGNESIUM 2.7 mg/dL (1.8-2.4); POTASSIUM,K 4.8 mmol/L (3.5-5.1); PROTEIN TOTAL,TP 9.4 g/dL (6.4-8.2); SODIUM,NA 134 mmol/L (136-145)
[2024-11-02 08:48] LABS: LACTIC ACID 0.7 mmol/L (0.4-2.0)
[2024-11-02 09:09] LABS: BASOPHILS PERCENT MAN 1; EOSINOPHILS PERCENT MAN 15 % (1-3); LYMPHOCYTES PERCENT MAN 14 % (20-50); METAMYELOCYTE PERCENT MAN 1; MONOCYTES PERCENT MAN 9 % (2-8); NRBC MANUAL 1 /100WBC; SEG NEUTROPHILS PERCENT MAN 60 % (42-75)
== END 2024-11-02 12:10 ==
LOC: DL.ED 06:48
DX: I13.0 Hypertensive heart and chronic kidney disease with heart failure and stage 1 through stage 4 chronic kidney disease, or unspecified chronic kidney disease (principal); I50.9 Heart failure, unspecified; N18.9 Chronic kidney disease, unspecified; E78.00 Pure hypercholesterolemia, unspecified; I25.2 Old myocardial infarction; J44.9 Chronic obstructive pulmonary disease, unspecified; F17.200 Nicotine dependence, unspecified, uncomplicated; Z88.5 Allergy status to narcotic agent; Z88.8 Allergy status to other drugs, medicaments and biological substances; Z91.040 Latex allergy status; Z79.82 Long term (current) use of aspirin; Z79.51 Long term (current) use of inhaled steroids; Z79.899 Other long term (current) drug therapy
CPT/HCPCS: 36415; 71045; 80053; 80307; 83605; 83735; 84484; 85025; 85610; 99284; 99285

== ENCOUNTER 2024-12-04 13:03 | Emergency (ER) | payer MEDICARE, MEDICAID ==
[2024-12-04 13:49] LABS: BASOPHILS PERCENT AUTO 0.9 % (0.0-1.0); EOSINOPHILS PERCENT AUTO 8.4 % (1.0-3.0); LYMPHOCYTES PERCENT AUTO 16.7 % (20.5-50.1); MONOCYTES PERCENT AUTO 7.6 % (2-8); NEUTROPHILS PERCENT AUTO 66.4 % (42.2-75.2); PLATELET COUNT,PLT 284 10^3/uL (150-450); RED BLOOD CELL COUNT 4.76 10^6/uL (4.6-6.2); WHITE BLOOD CELL COUNT,WBC 6.8 10^3/uL (5.0-10.0)
[2024-12-04 14:02] LABS: BLOOD UREA NITROGEN,BUN 22.0 mg/dL (7-18); CARBON DIOXIDE,CO2 29.0 mmol/L (21-32); CHLORIDE,CL 103.0 mmol/L (98-107); CREATININE 1.5 mg/dL (0.70-1.30); EST CRCL DRUG DOSING (CG) 52.64 mL/min; ESTIMATED GFR 55.0 mL/min (>=60); GLUCOSE RANDOM 108.0 mg/dL (70-99); POTASSIUM,K 4.1 mmol/L (3.5-5.1); SODIUM,NA 140.0 mmol/L (136-145)
[2024-12-04] MEDS: Amoxicillin/Clavulanate K 875-125 MG Tab PO ONE (15:05)
== END 2024-12-04 15:06 | disposition home or self-care (01) ==
LOC: DL.ED 13:03
DX: Z48.03 Encounter for change or removal of drains (principal); I13.0 Hypertensive heart and chronic kidney disease with heart failure and stage 1 through stage 4 chronic kidney disease, or unspecified chronic kidney disease; I50.9 Heart failure, unspecified; N18.9 Chronic kidney disease, unspecified; E78.00 Pure hypercholesterolemia, unspecified; Z91.040 Latex allergy status; Z88.5 Allergy status to narcotic agent; Z88.8 Allergy status to other drugs, medicaments and biological substances; Z79.82 Long term (current) use of aspirin; Z79.01 Long term (current) use of anticoagulants; Z79.899 Other long term (current) drug therapy
CPT/HCPCS: 36415; 80048; 85025; 87040; 99283; A9270; 80053